=== PATIENT | male | born 1975 | race Caucasian/White ===

== ENCOUNTER 2022-01-14 15:20 | Emergency (ER) | payer OTHER, SELFPAY ==
[2022-01-14 15:45] VITALS: BP 144/107; BP 170/100; PULSE 20; PULSE 99; RESP 16; TEMP 36.6; O2SAT 97; O2SAT 98; BMI 33.5
--- NOTE | 2022-01-14 15:50 | PC.NURSE ---
REFUSING TO ANSWER AND ELABORATE ABOUT SI
--- NOTE | 2022-01-14 16:02 | ED_ITS ---
HPI - Alcohol General Chief Complaint: ETOH/Substance Use Stated Complaint: SI ETOH Time Seen by Provider: 01/14/22 16:02 Source: patient Mode of arrival: ambulatory Limitations: no limitations History of Present Illness HPI narrative: 46-year-old male presents requesting detox for alcohol. States that he has been drinking at least 15-20 nips daily for possibly years. He stated he did go to detox once 2 years ago and had a horrendous experience. Patient states that he is tired of living this way, and would like some help. He does report withdrawal symptoms, does not feel that he has she has seizures but has blacked out in the past. MD complaint: alcohol intoxication, alcohol withdrawal, alcohol dependence and desires rehab Last drink: Hours (ago) (Just prior to arrival) Chronic alcohol use: Yes Previous visits for alcohol intoxication: No Recent trauma: No Associated symptoms: tremors and depression Treatments prior to arrival: none Related Data Allergies Allergy/AdvReac Type Severity Reaction Status Date / Time No Known Allergies Allergy Verified 01/14/22 16:08 Review of Systems Review of Systems: Constitutional: No Fever, No Chills ENT/Mouth: No Ear Pain, No Nasal Congestion, No sore throat Eyes: No Eye Pain, No Swelling, No Redness Cardiovascular: No Chest Pain, No SOB Respiratory: No Cough, No Sputum, No Dyspnea Gastrointestinal: No Nausea, No Vomiting, No Diarrhea, No Hematochezia, No Melena Genitourinary: No Dysuria, No Urinary Frequency, No Hematuria Musculoskeletal: No Myalgias Skin: No Skin Lesions, No rash Neuro: No Weakness, No Numbness, No Paresthesias, No Dizziness, No Headache Psych: positive Anxiety, positive Depression, positive alcohol abuse, denies SI HI Heme/Lymph: No Lymphadenopathy Endocrine: No Polyuria, No Polydipsia Yes all other systems are reviewed and are negative PMFSH Past Medical History Attestation statement: The following information was validated with the patient. Source: old records reviewed Social History Social History Alcohol intake: current Alcohol intake frequency: 3 or more drinks per day Alcohol type: hard liquor Smoked in Last 30 Days: Yes Use of substances other than those prescribed or required for medical reasons: No Advance Directives: No Advance Directives Information Provided: No Physical Exam ED Vital Signs: Vital Signs - 24 hr 01/14/22 15:45 01/14/22 18:06 01/14/22 19:40 Temperature 98 F 97.8 F Pulse Rate 99 91 90 Respiratory Rate 16 16 14 Blood Pressure 144/107 H 112/68 130/86 Pulse Oximetry 97 96 96 Oxygen Delivery Method Room Air Room Air Room Air 01/15/22 01:26 Temperature 97.8 F Pulse Rate 85 Respiratory Rate 14 Blood Pressure 149/99 H Pulse Oximetry 95 Oxygen Delivery Method Room Air BMI result Body Mass Index 33.5 Appearance: Alert. Oriented X3. Moderate distress. Eyes: Pupils equal, round and reactive to light. Sclera nonicteric. ENT: Pharynx normal. Neck: Normal inspection. Neck supple. CVS: Tachycardic heart rate and rhythm. Pulses normal. Respiratory: No respiratory distress. Breath sounds normal. Abdomen: Soft and nontender. Skin: Skin warm and dry. Normal skin color. Normal skin turgor. Extremities: No lower extremity edema. Moves all extremities against resistance. Gait not assessed for safety. Neuro: No motor deficit. No sensory deficit. Cranial nerves 2-12 intact. Course Course Course Narrative: 46-year-old male presents requesting detox for alcoholism. Has been drinking alcohol 15-20 nips on a daily basis for an unknown amount of time. He did try detox at at care facility 2 years ago, which he states was a horrendous experience and does not want to go back to that facility. He does not report suicidal ideation, but states that he can not live the way that he is living at this time. Patient is hypertensive, tachycardic, and anxious. I would give this patient a CIWA score of 10, and he gladly accepted Ativan 2 mg p.o.. Patient is polite, cooperative, and answering all questions to the best of his ability. 17:12 ETOH 358. Patient continues with even unlabored respirations. Sleeping, easily arousable with verbal stimulus. 19:10 patient alert, oriented, ambulatory. 01:45 patient states to feel anxious and that his withdrawal symptoms are exacerbated. Order for Ativan 2 mg p.o.. Patient is medically cleared at this time. Medications Administered Discontinued Medications Generic Name Dose Route Start Last Admin Trade Name Freq PRN Reason Stop Dose Admin Sodium Chloride 1,000 mls @ 999 mls/hr 01/14/22 17:00 01/14/22 18:57 Ns IVCONT 01/14/22 18:00 Infused .Q1H1M MICHELE Infusion Sodium Chloride 1,000 mls @ 999 mls/hr 01/14/22 20:30 01/14/22 20:46 Ns IVCONT 01/14/22 21:30 999 mls/hr .Q1H1M MICHELE Administration Sodium Chloride 1,000 mls @ 999 mls/hr 01/14/22 21:30 01/14/22 21:56 Ns IVCONT 01/14/22 22:30 999 mls/hr .Q1H1M MICHELE Administration Lorazepam 2 mg 01/14/22 16:09 01/14/22 16:45 Lorazepam 1 Mg Tablet PO 01/14/22 16:10 2 mg ONCE ONE Administration Lorazepam 2 mg 01/15/22 01:45 01/15/22 01:50 Lorazepam 1 Mg Tablet PO 01/15/22 01:46 2 mg ONCE ONE Administration MDM - Alcohol Differential Diagnosis Differential diagnosis: Likely alcohol dependence, alcohol withdrawal delirium and alcohol intoxication Medical Records Attestation: I reviewed the patient's medical records. Lab Data Attestation: I reviewed the patient's lab results. Result diagrams: 01/14/22 16:43 01/14/22 16:43 Labs: Lab Results 01/14/22 01/14/22 01/14/22 Range/Units 16:43 16:43 16:43 WBC 8.9 (4.8-10.8) X10*3/uL RBC 4.54 L (4.60-5.80) X10*6/uL Hgb 14.6 (14.0-18.0) g/dl Hct 41.0 L (42.0-52.0) % MCV 90.3 (80.0-98.0) fL MCH 32.2 (27.0-33.0) pg MCHC 35.6 (31.0-36.0) g/dl RDW 13.6 (11.0-16.0) % Plt Count 430 H (160-400) X10*3/uL MPV 8.9 L (9.4-12.4) fL Immature Gran % (Auto) 0.3 (0.0-0.4) % Neut % (Auto) 53.5 (45-73) % Lymph % (Auto) 36.7 (20-40) % [place] % (Auto) 6.6 (2-11) % Eos % (Auto) 1.7 (0-4) % Baso % (Auto) 1.2 (0-2) % Lymph # (Auto) 3.3 (1.2-4.9) X10*3/uL [place] # (Auto) 0.6 (0.1-1.2) X10*3/uL Eos # (Auto) 0.2 (0.0-0.4) X10*3/uL Baso # (Auto) 0.1 (0.0-0.2) X10*3/uL Abs Immat Gran (auto) 0.03 (0.00-0.03) X10*3/uL Absolute Neuts (auto) 4.8 (2.0-8.3) x10*3/uL Absolute Nucleated RBC 0.000 (0.0-0.012) X10*3/uL Nucleated RBC % (auto) 0.0 (0.0-0.2) /100WBC Sodium 138 (135-145) mmol/L Potassium 3.8 (3.3-5.1) mmol/L Chloride 105 (96-108) mmol/L Carbon Dioxide 21 L (22-29) mmol/L Anion Gap 16 (12-20) BUN 19 H (9-16) mg/dL Creatinine 0.74 (0.5-1.4) mg/dL Estim Creat Clear Calc 158.1 Estimated GFR > 60 Random Glucose 104 (60-115) mg/dL Calcium 8.3 L (8.4-10.2) mg/dL Total Bilirubin 0.5 (0.0-1.0) mg/dL AST 29 (5-37) U/L ALT 23 (0-40) U/L Alkaline Phosphatase 96 (39-117) U/L Total Creatine Kinase 82 (38-174) U/L Total Protein 6.8 (6.5-8.0) g/dL Albumin 3.8 (3.5-5.0) g/dL Urine Color Urine Appearance Urine pH (5.0-9.0) Ur Specific Gordon (1.005-1.025) Urine Protein (Neg-Trace) mg/dL Urine Glucose (UA) (Negative) mg/dL Urine Ketones (Negative) mg/dL Urine Blood (Negative) Urine Nitrite (Negative) Ur Leukocyte Esterase (Negative) Urine Opiates Screen (Not Detect) Urine Fentanyl Screen (Not Detect) Ur Barbiturates Screen (Not Detect) Ur Phencyclidine Scrn (Not Detect) Ur Amphetamines Screen (Not Detect) U Benzodiazepines Scrn (Not Detect) Urine Cocaine Screen (Not Detect) U Marijuana (THC) Screen (Not Detect) Ethyl Alcohol 358 H* mg/dL Influenza Type A (PCR) (Negative) Influenza Type B (PCR) (Negative) RSV RNA Qual (PCR) (Negative) SARS-CoV-2 RNA (RT-PCR) (Negative) 01/14/22 01/14/22 01/14/22 Range/Units 16:43 21:44 21:44 WBC (4.8-10.8) X10*3/uL RBC (4.60-5.80) X10*6/uL Hgb (14.0-18.0) g/dl Hct (42.0-52.0) % MCV (80.0-98.0) fL MCH (27.0-33.0) pg MCHC (31.0-36.0) g/dl RDW (11.0-16.0) % Plt Count (160-400) X10*3/uL MPV (9.4-12.4) fL Immature Gran % (Auto) (0.0-0.4) % Neut % (Auto) (45-73) % Lymph % (Auto) (20-40) % [place] % (Auto) (2-11) % Eos % (Auto) (0-4) % Baso % (Auto) (0-2) % Lymph # (Auto) (1.2-4.9) X10*3/uL [place] # (Auto) (0.1-1.2) X10*3/uL Eos # (Auto) (0.0-0.4) X10*3/uL Baso # (Auto) (0.0-0.2) X10*3/uL Abs Immat Gran (auto) (0.00-0.03) X10*3/uL Absolute Neuts (auto) (2.0-8.3) x10*3/uL Absolute Nucleated RBC (0.0-0.012) X10*3/uL Nucleated RBC % (auto) (0.0-0.2) /100WBC Sodium (135-145) mmol/L Potassium (3.3-5.1) mmol/L Chloride (96-108) mmol/L Carbon Dioxide (22-29) mmol/L Anion Gap (12-20) BUN (9-16) mg/dL Creatinine (0.5-1.4) mg/dL Estim Creat Clear Calc Estimated GFR Random Glucose (60-115) mg/dL Calcium (8.4-10.2) mg/dL Total Bilirubin (0.0-1.0) mg/dL AST (5-37) U/L ALT (0-40) U/L Alkaline Phosphatase (39-117) U/L Total Creatine Kinase (38-174) U/L Total Protein (6.5-8.0) g/dL Albumin (3.5-5.0) g/dL Urine Color Yellow Urine Appearance Clear Urine pH 6.0 (5.0-9.0) Ur Specific Gordon >= 1.030 H (1.005-1.025) Urine Protein Trace (Neg-Trace) mg/dL Urine Glucose (UA) Negative (Negative) mg/dL Urine Ketones Negative (Negative) mg/dL Urine Blood Negative (Negative) Urine Nitrite Negative (Negative) Ur Leukocyte Esterase Negative (Negative) Urine Opiates Screen Not Detected (Not Detect) Urine Fentanyl Screen Not Detected (Not Detect) Ur Barbiturates Screen Not Detected (Not Detect) Ur Phencyclidine Scrn Not Detected (Not Detect) Ur Amphetamines Screen Not Detected (Not Detect) U Benzodiazepines Scrn Not Detected (Not Detect) Urine Cocaine Screen Not Detected (Not Detect) U Marijuana (THC) Screen Not Detected (Not Detect) Ethyl Alcohol mg/dL Influenza Type A (PCR) NEGATIVE (Negative) Influenza Type B (PCR) NEGATIVE (Negative) RSV RNA Qual (PCR) NEGATIVE (Negative) SARS-CoV-2 RNA (RT-PCR) NEGATIVE (Negative) Discharge Plan Discharge Clinical Impression: Alcohol withdrawal syndrome Patient Disposition: Still a Patient Instructions: Abuse of Alcohol (ED) Additional Instructions: Thank you for choosing detox. Thank you for choosing this emergency department for evaluation. Please follow-up with primary care physician as needed. Return to the emergency department for any new, concerning, or worsening symptoms. Interventions: Citrus-Suicide Risk Severity Scale Last Done: 01/15/22 01:26
[2022-01-14] MEDS: LORazepam 1 MG TABLET 2 MG PO (16:45)
[2022-01-14 16:48] LABS: MANUAL DIFF FLAG NO
[2022-01-14 16:51] LABS: Basophils Absolute Auto 0.1 X10*3/uL (0.0-0.2); Basophils Percent Auto 1.2 % (0-2); Eosinophils Absolute Auto 0.2 X10*3/uL (0.0-0.4); Eosinophils Percent Auto 1.7 % (0-4); Hemoglobin 14.6 g/dl (14.0-18.0); Imm Gran Abs Auto 0.03 X10*3/uL (0.00-0.03); Imm Gran Pct Auto 0.3 % (0.0-0.4); Lymphocytes Absolute Auto 3.3 X10*3/uL (1.2-4.9); Lymphocytes Percent Auto 36.7 % (20-40); Mean Corpuscular HGB Conc 35.6 g/dl (31.0-36.0); Mean Corpuscular Hemoglobin 32.2 pg (27.0-33.0); Mean Corpuscular Volume 90.3 fL (80.0-98.0); Mean Platelet Volume 8.9 fL (9.4-12.4); Monocytes Absolute Auto 0.6 X10*3/uL (0.1-1.2); Monocytes Percent Auto 6.6 % (2-11); Neutrophils Absolute Auto 4.8 x10*3/uL (2.0-8.3); Neutrophils Percent Auto 53.5 % (45-73); Platelet Count 430 X10*3/uL (160-400); Red Blood Count 4.54 X10*6/uL (4.60-5.80); Red Cell Distribution Width 13.6 % (11.0-16.0); White Blood Count 8.9 X10*3/uL (4.8-10.8)
[2022-01-14] MEDS: 0.9 % Sodium Chloride 1,000 ML 999 ML IVCONT ×3 (16:51→21:56)
[2022-01-14 17:04] LABS: Alanine Aminotransferase 23 U/L (0-40); Albumin Level 3.8 g/dL (3.5-5.0); Alkaline Phosphatase 96 U/L (39-117); Anion Gap 16 (12-20); Aspartate Amino Transferase 29 U/L (5-37); Bilirubin Total 0.5 mg/dL (0.0-1.0); Blood Urea Nitrogen 19 mg/dL (9-16); Calcium 8.3 mg/dL (8.4-10.2); Carbon Dioxide 21 mmol/L (22-29); Chloride 105 mmol/L (96-108); Creatinine Clr Calc Pharmacy 158.1; Estimated Glomerular Filt Rate > 60; Glucose Random 104 mg/dL (60-115); Potassium 3.8 mmol/L (3.3-5.1); Sodium 138 mmol/L (135-145); Total Protein 6.8 g/dL (6.5-8.0)
[2022-01-14 17:05] LABS: Ethanol 358 mg/dL
[2022-01-14 17:26] LABS: Influenza A PCR NEGATIVE (Negative); Influenza B PCR NEGATIVE (Negative); Resp Syncy Virus RNA Qual PCR NEGATIVE (Negative); SARS COV2 PCR INHOUSE NEGATIVE (Negative)
--- NOTE | 2022-01-14 17:55 | PC.NURSE ---
pt sleeping after po Ativan. He has not endorsed SI statements with this RN. HE does express increased life stresses and a hx of his granfather having committed suicide in 1996 that has affected him significantly
[2022-01-14 18:06] VITALS: BP 112/68; PULSE 91; RESP 16; O2SAT 96
--- NOTE | 2022-01-14 18:09 | MHC.CARE ---
CARE team consult received. Pt's BAL was 358 at 1643 and he will not be clinically sober until after midnight. CARE team will complete a risk assessment at that time if he is alert and able to engage. Recovery team in AM.
[2022-01-14 19:40] VITALS: BP 130/86; PULSE 90; RESP 14; TEMP 36.6; O2SAT 96
[2022-01-14 21:52] LABS: Appearance Urine Clear; Color Urine Yellow; Glucose Urine UA Negative (Negative); Leukocyte Esterase Urine Negative (Negative); Nitrite Urine Negative (Negative); Specific Gravity - Urine >= 1.030 (1.005-1.025); Urine Blood Negative (Negative); Urine Ketones Negative (Negative); Urine Protein Trace mg/dL (Neg-Trace)
[2022-01-14 22:01] LABS: Amphetamine Screen Urine Not Detected (Not Detect); Barbiturates, Urine Not Detected (Not Detect); Benzodiazepines Screen Urine Not Detected (Not Detect); Cannabinoid Screen Urine Not Detected (Not Detect); Cocaine Screen Urine Not Detected (Not Detect); Fentanyl, urine Not Detected (Not Detect); Opiate Screen Urine Not Detected (Not Detect); Phencyclidine Screen Urine Not Detected (Not Detect)
--- NOTE | 2022-01-15 00:19 | MHC.CARE ---
CARE team attempted to meet with pt. Pt was sleeping soundly, unable to complete risk assessment at this time. CARE team will follow up in the morning, pt will be referred to recovery team for detox placement.
[2022-01-15 01:26] VITALS: BP 149/99; PULSE 85; RESP 14; TEMP 36.6; O2SAT 95
--- NOTE | 2022-01-15 01:40 | PC.NURSE ---
Pt's CIWA did not indicate significant risk for symptoms of alcohol withdrawal, but pt did report anxiety due to the fact that he would be spending the night in hospital while awaiting psych evaluation. Pt denied SI at this time and he stated that he might be interested in alcohol detox in the morning. Provider made aware of pt's condition. Provider gave verbal order for this RN to order 2 mg of Ativan PO at this time.
[2022-01-15] MEDS: LORazepam 1 MG TABLET 2 MG PO (01:50)
[2022-01-15 05:58] VITALS: BP 148/96; PULSE 90; RESP 15; TEMP 36.4; O2SAT 94
[2022-01-15 08:10] VITALS: BP 157/91; PULSE 92; RESP 16; TEMP 36.4; O2SAT 95
--- NOTE | 2022-01-15 08:31 | MHC.CARE ---
CARE Team met with Pt who is calm, cooperative and engaged. Pt reports struggling with alcohol use. Pt denies current SI/HI/VH/AH. Pt reports no prior [facility] admissions. Pt states he has therapist in [place], [place] who he has been seeing on and off for years related to his alcohol use. Pt would like to speak with the recovery team regarding detox placement. CARE Team provided Pt with [facility] Crisis information and [facility] prevention number. Plan for recovery team to follow up with Pt.
--- NOTE | 2022-01-15 09:42 | PC.NURSE ---
PT denies pain, denies SI/HI.
--- NOTE | 2022-01-15 10:11 | MHC.RECOVRN ---
This lead technical writer met w/ pt. Pt alert, laying in bed, eyes open. Pt reports is feeling ok, a bit groggy from medication. Pt states has been drinking 10-15 nips daily for past 10 days, pt states prior to reoccurrence had 10 day period of recovery. Pt reports since 2019 had 6 months of recovery, then a brief reoccurrence, then 5 months of recovery. Pt reports since 2019 has had on/off periods of recovery with brief recurrences in between. Pt states in the past was prescribed Campral, however did not take medication and did not find it helpful. This lead technical writer and patient reviewed options including, detox, [facility], recovery supports. Pt states interested in Vivitrol. This lead technical writer reviewed medication. Recovery resource packet provider w/ further information. Pt states would like to go home and review recovery options. Report provided to ED RN.
--- NOTE | 2022-01-15 10:53 | PHA.MEDREC ---
Pharmacy Consult ? Medication Reconciliation Pharmacy has completed the medication reconciliation.
--- NOTE | 2022-01-15 12:45 | PC.NURSE ---
PT seen by care team, cleared for d/c.
== END 2022-01-15 13:34 | disposition home or self-care (01) ==
PROVIDERS: Nurse Practitioner Family; Emergency Provider Emergency Medicine; PCP Nurse Practitioner Family
DX: F10.139 Alcohol abuse with withdrawal, unspecified (principal); Y90.8 Blood alcohol level of 240 mg/100 ml or more; Z20.822 Contact with and (suspected) exposure to COVID-19; Z79.899 Other long term (current) drug therapy
CPT/HCPCS: 0241U; 36415; 80053; 80307; 81003; 82077; 82550; 85025; 99285